=== PATIENT | female | born 1995 | race African-American/Black ===

== ENCOUNTER 2025-10-11 00:39 | Emergency (ER) | payer OTHER, SELFPAY ==
[2025-10-11 00:57] VITALS: BP 134/55; PULSE 89; RESP 18; TEMP 36.6; O2SAT 98; BMI 31.2
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
--- OUTSIDE RECORDS SUMMARY | 2025-10-11 02:50 | XMS_ITS | Clinical Summary ---
Author Organization [employer] Address [address] [place] [address] Care Team Providers Care Quality Coordinator Name Role Phone Unavailable Primary Care Provider Unavailabl e Social History Tobacco Use Types Packs/Day Years Used Date Smoking Tobacco: Never Assessed Comments Unknown Sex and Gender Information Value Date Recorded Sex Assigned at Not on file Legal Sex Female 9:31 PM EDT Gender Identity Not on file Sexual Orientation Not on file Plan of Treatment Health Maintenance Due Date Last Done Comments Depression Screening 1996 Lipid Panel 1996 SDOH Screening 1996 Disability Screening 1996 Hepatitis B Vaccines (4 of 4 - 4-dose series) 03/18/1997 02/05/1997, 1996, 1996 Alcohol/Substance Use Screening 2008 Tobacco Screening 2008 Family Planning (PISQ) 2011 Hepatitis C Screening 2014 Pap Smear 2017 COVID-19 Vaccine ( - season) 2025 03/11/2022 Influenza Vaccine (#1) 2025 , 12/13/2023, 11/09/2021, Additional history exists DTaP/Tdap/Td Vaccines (10 - Td or Tdap) 04/02/2034 04/02/2024, 08/25/2022, 07/01/2020, Additional history exists Zoster Vaccines (1 of 2) 2046 RSV Patients and Patients Aged 60 years or older (1 - 1-dose 75+ series) 2071 HIB Vaccines Completed 10/25/1997, 05/21, 02/05/1997, Additional history exists IPV Vaccines Completed 08/15/2000, 05/21, 02/05/1997, Additional history exists Meningococcal Vaccine Aged Out 08/26/2008 No monica carlos alberto eligible based on patient's age to complete this topic HIV Screening Completed 04/27/2018 Pneumococcal Vaccine: Pediatrics (0 to 5 Years) and At-Risk Patients (6 to 49) Years Aged Out 07/01/2020 No longer eligible based on patient's age to complete this topic HPV Vaccines Completed 03/01/2023, 02/20, 11/24/2011, Additional history exists Hepatitis A Vaccines Aged Out No long er eligible based on patient's age to complete this topic Meningococcal B Vaccine Aged Out No l onger eligible based on patient's age to complete this topic RSV under 20 months Aged Out No longe r eligible based on patient's age to complete this topic Rotavirus Vaccines Aged Out No longer eligible based on patient's age to complete this topic
--- OUTSIDE RECORDS SUMMARY | 2025-10-11 02:50 | XMS_ITS | Data Portability ---
Author Organization MICKY Brown s [address] Address [address] [place] [address] Assessment No assessment recorded. Plan of Treatment Reminders Order Date Submit Date Provider Last Modified By Organization Details Last Modified Time Details Appointments None recorded. Lab urinalysis , dipstick 2022 023 [email or web address] 5 _[facility], [address] [place] [address], [phone], 3 15:01:16 test, urine 2022 023 [email or web address] 5 _[facility], [address] [place] [address], [phone], 3 15:01:17 vaginal pathogens panel, BETH+probe, vaginal fluid 2022 023 NORMANGEE [facility], [address] [place] [address], [place], [address], 3 06:08:12 Referral None recorded. Procedures None recorded. Surgeries None recorded. Imaging None recorded. Medication Orders Diflucan 150 mg tablet 2022 023 [id number], [address], [place], [phone], 3 15:01:20 Patient TargetsNo targets recorded. Patient Instructions Encounter Date Encounter Id Patient Instructions Last Modified By Organization Details Last Modified Time 05/31/2023 [id number] vaginal yeast infection: care instructions [email or web address] Not available 05/31/2023 15:01:55 Take the difluca n as prescribed. You will be contacted when your lab reports return. See printed instructions. Follow up with your [facility] as soon as possible. Seek Emergency Medical evaluation for any worsening symptoms. [email or web address] Not available 05/31/2023 15:03:06 Reason for Referral None Reported. Results Created Date Observation Date Name Description Value Unit Range Abnormal Flag Note LastModifiedBy Organization Detail LastModifiedTime 05/31/2006/01/2023 NUSWA B VAGIN ITIS PLUS (VG+) atopobium vaginae LOW - 0 score Not Available [facility] ([facility]) [address] [facility], [place], [address], 06/02/2023 06:08:12 05/31/20 23 06/01/2023 NUSWA B VAGIN ITIS PLUS (VG+) bvab 2 LOW - 0 score Not Available [facility] ([facility]) [address] [facility], [place], [address], 06/02/2023 06:08:12 05/31/2006/01/2023 NUSWA B VAGIN ITIS PLUS (VG+) megasphaera 1 LOW - 0 score Calcu late total score by demetris cooley the 3 indiv idual bacte rial vagin osis (BV) marke r score s toget her. Total score is inter prete d as follo ws: Total score 0-1: Indic ates the absen ce of BV. Total score 2: Indet ermin ate for BV. Addit ional clini candy data shoul d be evalu ated to estab debbie a diagn osis. Total score 3-6: Indic ates the prese nce of BV. This test was devel oped and its perfo rmanc e arjun cteri stics deter mined by [facility]. It has not been clear ed or appro ronan by the Food and Drug Admin istra tion. Not Available [facility] ([facility]) [address] [facility] [place], [place], [address], 06/02/2023 06:08:12 05/31/20 23 06/02/2023 NUSWA B VAGIN ITIS PLUS (VG+) ginna albicans, BETH POSITI VE negati ve abnormal Not Available [facility] ([facility]) [address] [facility], [place], [address], 06/02/2023 06:08:12 05/31/20 23 06/02/2023 NUSWA B VAGIN ITIS PLUS (VG+) ginna glabrata, BETH NEGATI VE negati ve Not Available [facility] ([facility]) [address] [facility], [place], [address], 06/02/2023 06:08:12 05/31/2006/02/2023 NUA B VAGIN ITIS PLUS (VG+) trich vag by BETH NEGATI VE negati ve Not Available [facility] ([facility]) [address] [facility] [place], [place], [address], 06/02/2023 06:08:12 05/31/20 23 06/02/2023 NUA B VAGIN ITIS PLUS (VG+) chlamydia trachomatis, BETH NEGATI VE negati ve Not Available [facility] ([facility]) [address] [facility] [place], [place], [address], 06/02/2023 06:08:12 05/31/2006/02/2023 NUA B VAGIN ITIS PLUS (VG+) neisseria gonorrhoeae, BETH NEGATI VE negati ve Not Available [facility] ([facility]) [address] [place], [address], 06/02/2023 06:08:12 05/31/20 23 05/31/2023 urina lysis , dipst ick Unknown Analyte Normal = light yellow Not Available [address], [place], [address], 05/31/2023 14:11:03 07/1105/31/2023 urina lysis , dipst ick Unknown Analyte Normal = clear Not Available 2099rupinder calderon [address], [place], [address], 05/31/2023 14:11:03 05/31/20 23 05/31/2023 urina lysis , dipst ick Unknown Analyte Normal = negati ve Not Available [facility] [address], [place], [address], 05/31/2023 14:11:03 05/31/20 23 05/31/2023 urina lysis , dipst ick Unknown Analyte Normal = Negati ve Not Available 2099rupinder calderon [address], [place], [address], 05/31/2023 14:11:03 05/31/20 23 05/31/2023 urina lysis , dipst ick Unknown Analyte Normal = Negati ve Not Available 2099rupinder calderon [address], [place], [address], 05/31/2023 14:11:03 05/31/2005/31/2023 urina lysis , dipst ick Unknown Analyte Normal = 1.010, 1.015, 1.020 Not Available [facility] [address], [place], [place], [address], 05/31/2023 14:11:03 05/31/2005/31/2023 urina lysis , dipst ick Unknown Analyte Normal = Negati ve Not Available [facility] [address], [place], [address], 05/31/2023 14:11:03 05/31/20 23 05/31/2023 urina lysis , dipst ick Unknown Analyte Normal = 6.5, 7.0, 7.5, 8.0 Not Available [facility] [address], [place], [address], 05/31/2023 14:11:03 05/31/20 23 05/31/2023 urina lysis , dipst ick Unknown Analyte Normal = Negati ve Not Available rupinder calderon [address], [place], [address], 05/31/2023 14:11:03 05/31/20 23 05/31/2023 urina lysis , dipst ick Unknown Analyte Normal = 0.2, 1.0 Not Available rupinder [address], [place], [address], 05/31/2023 14:11:03 05/31/20 23 05/31/2023 urina lysis , dipst ick Unknown Analyte Normal = Negati ve Not Available rupinder [address], [place], [address], 05/31/2023 14:11:03 05/31/20 23 05/31/2023 urina lysis , dipst ick Unknown Analyte Normal = Negati ve Not Available rupinder calderon [address], [place], [address], 05/31/2023 14:11:03 05/31/20 23 05/31/2023 urina lysis , dipst ick Unknown Analyte Yellow Not Available [address], [place], [address], 05/31/2023 14:11:03 05/31/20 23 05/31/2023 urina lysis , dipst ick Unknown Analyte Clear Not Available christophe [address], [place], [address], 05/31/2023 14:11:03 05/31/20 23 05/31/2023 urina lysis , dipst ick Unknown Analyte Negati ve Not Available rupinder calderon [address], [place], [address], 05/31/2023 14:11:03 05/31/20 23 05/31/2023 urina lysis , dipst ick Unknown Analyte Negati ve Not Available [address], [place], [address], 05/31/2023 14:11:03 05/31/20 23 05/31/2023 urina lysis , dipst ick Unknown Analyte Negati ve Not Available [address], [place], [address], 05/31/2023 14:11:03 05/31/20 23 05/31/2023 urina lysis , dipst ick Unknown Analyte 1.025 Not Available [address], [place], [address], 05/31/2023 14:11:03 05/31/20 23 05/31/2023 urina lysis , dipst ick Unknown Analyte Trace- intact Not Available [address], [place], [address], 05/31/2023 14:11:03 05/31/20 23 05/31/2023 urina lysis , dipst ick Unknown Analyte 6.5 Not Available [address], [place], [address], 05/31/2023 14:11:03 05/31/20 23 05/31/2023 urina lysis , dipst ick Unknown Analyte Negati ve Not Available [address], [place], [address], 05/31/2023 14:11:03 05/31/20 23 05/31/2023 urina lysis , dipst ick Unknown Analyte 0.2 E.U./d L Not Available [facility] [address] [place], [address], 05/31/2023 14:11:03 05/31/20 23 05/31/2023 urina lysis , dipst ick Unknown Analyte Negati ve Not Available [address] [place], [place] [address] [place], [address], 05/31/2023 14:11:03 05/31/20 23 05/31/2023 urina lysis , dipst ick Unknown Analyte Negati ve Not Available [address] [place] [address], [place], [address], 05/31/2023 14:11:03 05/31/20 23 05/31/2023 pregn robert test, urine Unknown Analyte Normal = Negati ve Not Available [address] [place] [address], [address], 05/31/2023 14:11:09 05/31/20 23 05/31/2023 pregn robert test, urine Unknown Analyte negati ve Not Available [address] [place] [address], [address], 05/31/2023 14:11:09 Result Notes None recorded. Problems Name Problem SNOMED Code Status Onset Date Resolution Date Notes Provider Name and Address Organization Details Recorded Time Genital herpes simplex 12190220 Active 023 MICKY Freedman - [facility] 05/31/2023 14:10:23 Problem Notes None recorded. Medical Equipment None Reported. Allergies No known drug allergies Medications Name Sig Start Date Stop Date Status Note LastModified by Organization Details LastModified Time Diflucan 150 mg tablet Take 1 tablet every day by oral route for 1 day. 023 active Not Available Not Available Not Avai lable valacyclovir active Not Available Not Available Not Available Vitals Date Recorded Body weight Body mass index (BMI) Body height Oxygen saturation Heart rate Pain severity - 0-10 verbal numeric rating [Score] - Reported Respiratory rate Body temperature Systolic And Diastolic Provider Name and Address Organization Details Last Updated DateTime 3 48402.7 g 26.6 kg/m2 170.18 cm 98 % 100 /min 0 20 /min 98.7 [degF] 116/78 mm[Hg] Shani Maritnez PA - [facility] 3 14:12:17 Social History Question Answer Notes LastModified by [employer] Details LastModified Time Tobacco Smoking Status Never Smoker Shani fleming PA - [facility] 05/31/2023 14:10:33 Have You Had Direct Contact, Or Contact During Intimacy, With Monkeypox Rash, Scabs, Or Body Fluids From A Person With Monkeypox? No Information not available 05/31/2023 Have You Recently Traveled Abroad? No Information not available 05/31/2023 Sex: Unknown Functional Status Question Answer Note LastModified by [employer] Details LastModified Time Do you use any illicit or recreational drugs? No Information not available 05/31/2023 Do you or have you ever used any other forms of tobacco or nicotine? No Information not available 05/31/2023 What is your level of alcohol consumption? None Information not available 05/31/2023 Mental Status None recorded. Family History Relationship Description Onset Age of this Age Resolved Age Notes LastModified by Organization Details LastModified Time Father No current problems or disability Not available 05/31 14:10:25 Mother No current problems or disability Not available 05/31 14:10:25 Medical History No medical history recorded. Gynecological History Statement/Question Response Date of LMP 05/22/2023 Is there any chance of ? No LMP Approximate Obstetrics History GPAL:G 0 P 0 0 0 0 Immunizations Vaccine Type Date Status Note Provider Nam e and Address Organization Details Recorded Time HPV9 3 completed Shani fleming PA Roberta [facility] 05/31/2023 14:09:47 HPV9 2 completed Shani Dallas null, PA - [facility] 05/31/2023 14:09:47 COVID-19, mRNA, LNP-S, PF, 30 mcg/0.3 mL dose 1 completed Shani Dallas null, PA - [facility] 05/31/2023 14:09:47 COVID-19, mRNA, LNP-S, PF, 30 mcg/0.3 mL dose 1 completed Shani Dallas null, PA - [facility] 05/31/2023 14:09:47 COVID-19, mRNA, LNP-S, PF, 30 mcg/0.3 mL dose, minerva-sucrose 2 completed Shani Dallas null, PA - [facility] 05/31/2023 14:09:47 pneumococcal polysaccharide PPV23 0 completed Shani Dallas null, PA - [facility] 05/31/2023 14:09:47 Tdap 0 completed Shani Dallas null, PA - [facility] 05/31/2023 14:09:47 Tdap 2 completed Shani Dallas null, PA - [facility] 05/31/2023 14:09:47 Influenza, split virus, quadrivalent, PF 1 completed Shani Dallas null, PA - [facility] 05/31/2023 14:09:47 Influenza, split virus, quadrivalent, PF 1 completed Shani Michelle null, PA - [facility] 05/31/2023 14:09:47 Past Encounters Encounter ID Performer Location Encounter Start Date Encounter Closed Date Diagnosis/Indication Diagnosis SNOMED-CT Code Diagnosis ICD10 Code Diagnosis IMO Codes Diagnosis Note [id number] [address] [facility] [place] [address] 08/18/2018 16:58:24 08/18/2018 18:29:56 [id number] [address] [facility], [place] [address] 10/01/2018 14:26:18 10/01/2018 15:11:01 [id number] [address] [facility], [place] [address] 04/19/2017 16:42:22 04/19/2017 17:21:03 [id number] [address] [facility], [place] [address] 07/07/2018 10:45:46 07/07/2018 12:14:58 [id number] [address] [facility], [place] [address] 11/11/2017 18:07:14 11/11/2017 19:57:15 [id number] [address] [facility], [place] [address] 03/06/2019 08:07:02 03/06/2019 08:58:52 [id number] [address] [facility], [place] [address] 08/30/2018 12:43:52 08/30/2018 13:45:22 [id number] [address] [facility], [place] [address] 12/11/2017 13:02:36 12/11/2017 14:56:59 [id number] [address] [facility], [place] [address] 07/16/2020 08:35:05 07/16/2020 09:36:00 [id number] [address] [facility], [place] [address] 03/14/2017 12:50:01 03/14/2017 14:03:57 [id number] [address] [facility] [place] [address] 12/15/2018 08:24:06 12/15/2018 10:02:42 [id number] [address] [facility] [place] [address] 09/05/2022 14:56:52 09/05/2022 18:00:37 [id number] [address] [facility] [place] [address] 01/22/2018 15:34:49 01/22/2018 17:18:08 [id number] Reba Mcclelland MD [address] [facility] [address] [place] [address] 05/31/2023 13:19:28 05/31/2023 15:08:15 [facility] [id number] B37.31 Health Concerns Section Related Observation LastModified by Organization Detai ls LastModified Time None Recorded Concern Status LastModified by Organization Details LastModified Time None Recorded Advance Directives Directive None Recorded Payers Insurance Date Sequence Insurance Name Policy Number Policy Akbar Covered Member ID Akbar Member ID Guarantor Name 05/31/2023 1 [facility] (MEDICAID [facility] [id number] [facility] [id number] [facility] 07/23/2023 1 [place] [facility] [id number] [facility] Notes Date Note Type Note Provider Name and Address Organization Details Recorded Time 05/31/2023 text/html Urinary / Spray Foam Installer Problems-FemaleReporte d by PatientGU ProblemsFor quality, patient reportsitching. For onset/timing, patient reportsworse. For context, patient reportssexually active. For source of patient information, patient reportsinformation obtained from patientandpatient arrived at urgent care ambulatory. For location, patient reportsvaginal. For severity, patient reportsmoderate. For duration, patient reportsconstant(2 days.). For modifying factors, patient reportsnothing gives relief. For associated symptoms, patient reportsno flank pain,no jaundice,no blood in the urine,no pain during urination,no vaginal discharge, andno urgency.27 year old female presenting for evaluation of vaginal itching for the past 2 days. She reports that she is prone to having vaginal yeast infections. The patient reports that she started a new oral contraceptive pill about 10 days ago when she started her period. Her period was heavier than usual so she stopped the medication. Currently she is having some vaginal spotting but no other discharge. No fever, chills, rash, nausea, vomiting, abdominal pain, flank pain, urinary symptoms. Reba Mcclelland MD [address] [facility], [address], PA - [facility] 05/31/2023 22:16:13 OBGyn Episode No OBEpisode recorded.
--- OUTSIDE RECORDS SUMMARY | 2025-10-11 02:50 | XMS_ITS | Clinical Summary ---
Author Organization [facility] ity Address [address] [place] [address] Care Team Providers Care Gate Supervisor Name Role Phone Yoan Sibley Primary Care Provider [phone] Social History Tobacco Use Types Packs/Day Years Used Date Smoking Tobacco: Some Days Smokeless Tobacco: Never Alcohol Use Standard Drinks/Week Comments Yes 0 (1 standard drink = 0.6 oz pur e alcohol) Comments Unknown Sex and Gender Information Value Date Recorded Sex Assigned at Not on file Legal Sex Female 11:18 AM EST Gender Identity Not on file Sexual Orientation Not on file Obstetrics History Last Filed Vital Signs Vital Sign Reading Time Taken Comments Blood Pressure 120/68 09/15/2023 1:32 PM EDT Pulse 86 09/15/2023 1:32 PM EDT Temperature - - Respiratory Rate - - Oxygen Saturation - - Inhaled Oxygen Concentration - - Weight 74.4 kg (164 lb) 09/15/2023 1:32 PM EDT Height 170.2 cm (5' 7 ) 05/05/2023 10:05 AM EDT Body Mass Index 25.69 05/05/2023 10:05 AM EDT Plan of Treatment Health Maintenance Due Date Last Done Comments DTaP,Tdap,and Td Vaccines (1 - Tdap) 2015 Hepatitis B Vaccines (1 of 3 - 19+ 3-dose series) 2015 Pneumococcal Vaccine: Pediat rics (0 to 5 Years) and At-Risk Patients (6 to 49 Years) (1 of 2 - PCV) 2015 Cervical Cancer Screening: P ap Smear 2017 HIV Screening 10/19/2022 Hepatitis C Screening 10/19/2022 Social Influencers of Health Screening 10/19/2022 HPV Vaccines (1 - 3-dose SCD M series) 2023 Depression Screening 11/21/2024 COVID-19 Vaccine (1 - 2024-2 6 season) 2025 Influenza Vaccine (#1) 2025 RSV Immunization Adult Patie nts (1 - 1-dose 75+ series) 2071 HIB Vaccines Aged Out No longer eligi ble based on patient's age to complete this topic Hepatitis A Vaccines Aged Out No long er eligible based on patient's age to complete this topic IPV Vaccines Aged Out No longer eligi ble based on patient's age to complete this topic MMR Vaccines Aged Out No longer eligi ble based on patient's age to complete this topic Meningococcal ACWY Vaccine Aged Out N o longer eligible based on patient's age to complete this topic Meningococcal B Vaccine Aged Out No l onger eligible based on patient's age to complete this topic RSV Immunization Patients Un rogers 20 months Aged Out No longer eligible b ased on patient's age to complete this topic Varicella Vaccines Aged Out No longer eligible based on patient's age to complete this topic Care Teams Gate Supervisor Relationship Specialty Start Date End Date Yoan Sibley PA [address] [place] [address] PCP - General 03/09/23
[2025-10-11 03:28] VITALS: BP 130/73; PULSE 90; RESP 18; TEMP 36.8; O2SAT 99
[2025-10-11 04:22] VITALS: BP 130/73; PULSE 90; RESP 18; TEMP 36.8; O2SAT 99
== END 2025-10-11 04:23 | disposition home or self-care (01) ==
PROVIDERS: Emergency Provider Emergency Medicine; PCP Dentist General Practice
DX: S16.1XXA Strain of muscle, fascia and tendon at neck level, initial encounter (principal); V49.49XA Driver injured in collision with other motor vehicles in traffic accident, initial encounter; Y93.9 Activity, unspecified; Y92.9 Unspecified place or not applicable
CPT/HCPCS: 99283; 99284